=== PATIENT | female | born 1930 | race Caucasian/White ===

== ENCOUNTER 2017-12-19 18:25 | Inpatient (IN) | payer MEDICARE, OTHER ==
[~2017-12-19] VITALS: Ht 165.1 cm; Wt 56.0 kg
--- NOTE | ~2017-12-19 | OP ---
PATIENT NAME: JULIEN QUINONES MEDICAL RECORD: [id number] :32 LOCATION:D.MS [facility]2216 ADMISSION DATE:12/20/17 SURGEON: KACI SANFORD MD DATE OF OPERATION: 12/24/2017 PROCEDURE: Selective coronary angiography. INDICATION: Aortic valve replacement. PROCEDURE IN DETAIL: After informed consent was obtained and after detailed explanation of risks, benefits as well as alternative therapies, the patient elected to proceed with angiogram and heart catheterization. FINDINGS: The left ventriculogram was not performed secondary to inability to cross the stenotic aortic valve. SELECTIVE CORONARY ANGIOGRAPHY: Left main, left anterior descending, left circumflex, right coronary artery are all smooth-walled vessels with no angiographic evidence of coronary artery disease. OVERALL IMPRESSION: 1. No angiographic evidence of coronary artery disease. 2. Normal left heart pressures. 3. Normal left ventricular systolic function. 4. No coronary artery disease is present. Evaluate for valve replacement. TRANSINT:[id number] Voice Confirmation ID: [id number] DOCUMENT ID: [id number] KACI SANFORD MD at 1950 CC: [id number] DICTATION DATE: 12/24/17 1336 LEAD QA ANALYST: 12/24/17 1408 ADM IN [place] [id number] [place] [address]
--- NOTE | ~2017-12-19 | HEMODYNAMI ---
PATIENT:JULIEN QUINONES MEDICAL RECORD: [id number] : 32 LOCATION:[facility].2216 ADMISSION DATE: 12/20/17 Generatedon:12/24/201713:41 Patient name: JULIEN QUINONES Patient #: [id number] SSN: : [id number] Date of study: 12/24/2017 Page: Of Hemodynamic Procedure Report Patient Data Patient Demographics Procedure consent was obtained First Name: JULIEN Gender: Female Last Name: STACIE : 1930 [facility] Initial: YAKELIN Age: 87 year(s) Patient #: [id number] Race: Unknown Additional ID: [id number] Contact details Address: [address] [place] [address] State: [place] City: [place] Zip code: [address] Past Medical History Allergies: No known allergies Admission Admission Data Admission Date: 12/20/2017 Admission Time: 14:25 Room #: 2216 Procedure Procedure Types Cath Procedure Diagnostic Procedure LHC Coronaries only Procedure Description Procedure Date Procedure Date: 12/24/2017 Procedure Start Time: 13:28 Procedure End Time: 13:39 Procedure Staff Name Function Omar Honeycutt RN Nurse Efren Marie MD Performing Physician Juju Pizarro RT Scrub Iván Linda RN Nurse Kip Monzon RT Monitor Procedure Data Cath Procedure Fluoroscopy Diagnostic fluoroscopy Total fluoroscopy Time: 0.8 time: 0.8 min min Diagnostic fluoroscopy Total fluoroscopy dose: dose: 63.06 mGy 63.06 mGy Contrast Material Contrast Material Type Amount (ml) Isovue 300 22 Entry Location Entry Primary Successful Side Size Upsize Upsize Entry Closure Succes sful Closure Location (Fr) 1 (Fr) 2 (Fr) Remarks Device Remarks Femoral Right 5 Fr Exoseal artery Estimated blood loss: 5 ml Diagnostic catheters Device Type Used For End Catheter Placement MULTIPACK JL 4.0 5Fr Procedure catheter MULTIPACK 3DRC 5Fr Procedure catheter Procedure Complications No complications Procedure Medications Medication Administration Route Dosage 0.9% NaCl I.V. 100 ml/hr Oxygen NC 7 l/min Heparin Flush Bag added to field 2 bags (1000units/500ml NS) Lidocaine 2% added to field 20 Fentanyl I.V. 25 mcg Hemodynamics Rest Heart Rate: 61 (bpm) Snapshots Pre Cath Intra NCS Post Cath Vital Signs Time Heart Resp SPO2 etCO2 NIBP (mmHg) Rhythm Pain Sedation Rate (ipm) (%) (mmHg) Status Level (bpm) 13:14:47 59 27 94 0 144/67(121) NSR 0 (11) 10(A) , No pain 13:19:07 59 27 96 0 139/76(119) NSR 0 (11) 10(A) , No pain 13:23:23 56 23 89 0 127/67(106) NSR 0 (11) 10(A) , No pain 13:27:36 55 27 88 0 126/69(105) NSR 0 (11) 10(A) , No pain 13:31:53 57 22 89 0 125/63(102) NSR 0 (11) 9(A) , No pain 13:36:07 55 39 88 0 125/67(107) NSR 0 (11) 9(A) , No pain Medications Time Medication Route Dose Verified Delivered Reason Notes Effe ctiveness by by 13:19:42 0.9% NaCl I.V. 100 Iván Iván Per ml/hr Maddi Linda physician RN RN 13:20:00 Oxygen NC 7 Iván Iván Per l/min Maddi Linda physician RN RN 13:20:11 Heparin Flush added 2 Iván Iván used for Bag to bags Maddi Linda procedure (1000units/500ml field RN RN NS) 13:20:22 Lidocaine 2% added 20ml Iván Iván for local to vial Maddi Linda anesthetic field RN RN 13:28:36 Fentanyl I.V. 25 Iván Iván for mcg Maddi Linda sedation RN neighborhood conservation officer Log Time Note 12:46:05 Diagnostic Cath status Elective 12:46:07 Juju TREVIZO(R) sent for patient. Start room use. 12:46:09 Time tracking: Regular hours (M-F 7:00 - 5:00) 12:46:14 Plan of Care:Hemodynamics will remain stable., Cardiac rhythm will remain stable., Comfort level will be maintained., Respiratory function will remain adequate., Patient/ family verbilizes understanding of procedure., Procedure tolerated without complication., Recovers from procedure without complications.. 13:13:24 Patient received from Med/Surg to CCL 3 Alert and oriented. Tansferred to table in Supine position. 13:13:25 Correct patient and procedure confirmed by team. 13:13:25 Warm blankets applied, and elsa hugger turned on for patient comfort. 13:13:27 Signed procedure consent form obtained from patient. 13:13:33 ECG and BP/O2 sat monitors applied to patient. 13:13:34 Vital chart was started 13:13:35 Baseline sample Acquired. 13:13:55 Rhythm: sinus rhythm 13:13:58 Full Disclosure recording started 13:19:42 0.9% NaCl 100 ml/hr I.V. was administered by Iván Linda RN; Per physician; 13:20:00 Oxygen 7 l/min NC was administered by Iván Linda RN; Per physician; 13:20:11 Heparin Flush Bag (1000units/500ml NS) 2 bags added to field was administered by Iván Linda RN; used for procedure; 13:20:22 Lidocaine 2% 20ml vial added to field was administered by Iván Linda RN; for local anesthetic; 13:26:00 H&P Date Dictated: 12/21/2017 Within 30 days and on chart.. 13:26:03 Pre-op teaching completed and patient verbalized understanding. 13:26:03 Pre-procedure instructions explained to patient. 13:26:06 Family unavailable. 13:26:11 Patient NPO since Midnight. 13:26:17 Patient allergic to No known allergies 13:26:19 Is the patient allergic to Iodine/contrast media? No. 13:26:24 Is patient on blood thinner?Yes 13:26:27 Patient diabetic? No. 13:26:29 Previous problem with sedation/anesthesia? No ? 13:26:32 Snore? Yes 13:26:33 Sleep apnea? No 13:26:34 Opens mouth fully? Yes 13:26:34 Deviated septum? No 13:26:36 Sticks out tongue? Yes 13:26:37 Airway obstruction? No ? 13:26:40 Dentures? No ? 13:26:44 Pre procedure: right dorsailis pedis pulse 1+ Palpable, but thready & weak; easily obliterated 13:26:45 Patient pain scale 0/10 ?. 13:26:56 IV patent on arrival in right wrist with 0.9% NaCl at [facility]. 13::59 Lab results completed and on chart. 13:27:01 Right groin area was prepped with chlora-prep and draped in sterile fashion 13:27:02 Sharps counted by scrub and verified by R.N. 13:27:02 Alarms reviewed by R. N. 13:27:05 Use device set Femoral Dx 13:27:06 Bag Decanter (2002S) opened to sterile field. 13:27:06 ACIST Syringe (64867) opened to sterile field. 13:27:55 Medline Cath Pack ([id number]) opened to sterile field. 13:27:57 ACIST Manifold (09926) opened to sterile field. 13:27:57 ACIST Hand Control (75564) opened to sterile field. 13:27:58 Tegaderm 4 x 4 (1626W) opened to sterile field. 13:28:00 SHEATH Prelude 5Fr 0.035 (XLW-2J-11-035) opened to sterile field. 13:28:02 DIAGNOSTIC WIRE .035 260cm J wire (530803) opened to sterile field. 13:28:03 DIAGNOSTIC Multipack 5Fr catheter set (FQ2936) opened to sterile field. 13:28:17 Final Timeout: patient, procedure, and site verified with staff and physician. All members of the team are in agreement. 13::17 --------ALL STOP TIME OUT------ 13::17 Physician arrived 13:28:19 Right groin site verified by team. 13:28:22 Physical assessment completed. ASA score P 3 - A patient with severe systemic disease as per Efren Marie MD. 13:28:24 Sedation plan: IV Moderate Sedation Medication:Versed, Fentanyl 13:28:28 Procedure started. 13:28:32 Local anesthetic to right femoral artery with Lidocaine 2% by Efren Marie MD.INITIAL ACCESS ONLY 13:28:33 Zero performed for pressure channel P1 13:28:36 Fentanyl 25 mcg I.V. was administered by Iván Linda RN; for sedation; 13:28:48 Zero performed for pressure channel P1 13:28:50 Zero performed for pressure channel P1 13:28:53 Zero performed for pressure channel P1 13:28:55 Zero performed for pressure channel P1 13:28:58 Zero performed for pressure channel P1 13:29:01 Zero performed for pressure channel P1 13:29:24 A 5 Fr sheath was inserted into the Right Femoral artery 13:29:27 Zero performed for pressure channel P1 13:29:35 Zero performed for pressure channel P1 13:30:11 A MULTIPACK JL 4.0 5Fr catheter was advanced over the wire and used for Procedure. 13:30:13 LCA angiography performed. 13:31:00 Catheter exchanged over wire. 13:31:06 A MULTIPACK 3DRC 5Fr catheter was advanced over the wire and used for Procedure. 13:31:19 EXOSEAL 5Fr (EX500) opened to sterile field. 13:31:25 Catheter removed. 13:31:33 Sheath removed intact; hemostasis achieved with Exoseal to the Right Femoral artery. 13:31:34 Procedure ended.(Physican Out) 13:32:12 Fluoroscopy time 00.80 minutes. 13:34:13 Fluoroscopy dose: 63.06 mGy 13:34:13 Flurop Dose total: 63.06 13:34:18 Contrast amount:Isovue 300 22ml. 13:34:19 Sharps counted by scrub and verified by R.N. 13:34:21 Insertion/operative site no bleeding no hematoma. 13:34:24 Post-op/insertion site Right Femoral artery dressed using a 4 x 4 and Tegaderm. 13:34:27 Post right femoral artery:stable, soft, clean and dry 13:36:03 Post Procedure Pulses reassessed and unchanged 13:36:06 Post-procedure physical assessment completed. ASA score P 2 - A patient with mild systemic disease as per Efren Marie MD. 13:36:08 Post procedure rhythm: unchanged. 13:36:10 Estimated blood loss: 5 ml 13:36:12 Patient needs reinforcement of post procedure teaching. 13:36:12 Post procedure instruction explained to patient.Patient verbalizes understanding. 13:36:20 Procedure type changed to Cath procedure, Diagnostic procedure, LHC, Coronaries only 13:37:08 Procedure and supply charges have been captured, reviewed, submitted and are correct. 13:37:10 Procedure Complication : No complications 13:37:12 See physician's report for complete and final results. 13:37:12 Vital chart was stopped 13:39:07 Report given to Pre/Post Procedure Room. 13:39:10 Patient transfered to Pre/Post Procedure Room with Stretcher. 13:39:12 Full Disclosure recording stopped 13:39:12 Procedure ended. 13:39:16 End room use (Document Last) Device Usage Item Name Manufacture Quantity Catalog Number Hospital Part Current M inimal Lot# / Charge Number Stock Stock Serial# Code ACIST Syringe Acist 1 80847 380001 623545 139024 2 0 (55199) [employer] Bag Decanter Microtek 1 2001S 082400 96145 637479 5 (2001S) Medical Inc. Medline Cath Cardinal 1 [id number] 029621 36195 203424 5 Pack Health ([id number]) ACIST Hand Acist 1 08864 105409 326003 010135 5 Control (91960) [employer] ACIST Manifold Acist 1 19661 111933 731671 020992 5 (37406) [employer] Tegaderm 4 x 4 3M 1 1626W 258178 769413 740991 5 (1626W) SHEATH Prelude Merit 1 XTY-2I-00-035 838338 899312 264789 5 5Fr 0.035 Medical (XKW-2X-73-035) DIAGNOSTIC WIRE [facility] 1 188322 411884 935862 491839 3 0 .035 260cm J wire (632521) DIAGNOSTIC Cardinal 1 [id number] 340483 61290 743695 3 0 Multipack 5Fr Health catheter set ([id number]) MULTIPACK JL Cardinal 1 666194 5 4.0 5Fr Health catheter MULTIPACK 3DRC Cardinal 1 019297 5 5Fr catheter Health EXOSEAL 5Fr Cardinal 1 EX500 481871 205560 912111 1 0 (EX500) Health Signature Audit [place] Stage Time Signature Unsigned Intra-Procedure 12/24/2017 Kip Monzon 1:41:46 PM RT(R) Signatures Monitor : Kip Monzon RT Signature : Date : Time : [facility] [address] [facility] [place] [address]
--- NOTE | ~2017-12-19 | EC ---
PATIENT:JULIEN QUINONES DATE OF SERVICE: 12/20/17 SEX: F MEDICAL RECORD: [id number] DATE OF : [birth year] LOCATION:D.MS [facility] AGE OF PATIENT: 87 ADMISSION DATE: 12/20/17 REFERRING PHYSICIAN: INTERPRETING PHYSICIAN: KACI MARIE MD ECHOCARDIOGRAM REPORT ECHO CHARGES 4 ECHO COMPLETE Date: 12/20/17 CLINICAL DIAGNOSIS: ECHOCARDIOGRAPHIC MEASUREMENTS (adult normal given) AC root (d.<3.7cm) 3.0 cm LV Septum d (<1.2 cm> 1.4 cm Valve Excursion 0.5 cm LV Septum (systole) 1.7 cm Left Atria (s.<4.0cm> 4.9 cm LVPW d(<1.2cm) 1.4 cm RV (d.<2.3cm) 1.8 cm LVPW (sytole) 1.9 cm LV diastole(<5.6CM) 5.2 cm MV E-F(>70mm/sec) cm LV systole 3.7 cm LVOT Diameter 1.6 cm MV exc.(>10mm) cm Est.ejection fraction (50-75%) % DOPPLER: LVIT cm/sec A 112 cm/sec E 189 cm/sec LA cm/sec RVSP 74.0 mmHg LVOT 89.0 cm/sec AOP1/2T m/s Asc. Ao 590 cm/sec RVOT 108 cm/sec RA cm/sec PA 374 cm/sec AV Gradient Peak 140.0mmHg AV Mean 93.2 mmHg AV Area 0.2 cm MV Gradient Peak 16.0 mmHg MV Mean 5.1 mmHg MV Area cm COMMENTS: Transfer Specialist: 1 TAYLOR CORONADSOE Electric Motor Analyst: 1 Dr. Marie TAPE# PACS Pericardial Effusion Y DATE OF SERVICE: 12/20/2017 PROCEDURE: Echocardiogram. FINDINGS: 1. Left ventricular chamber size is mildly dilated. Left ventricular systolic function is moderately reduced, overall ejection fraction 30%. 2. Left atrium is enlarged at 4.9 cm. Right atrium and right ventricle chamber sizes are as well moderately dilated. 3. Valvular structures: Aortic valve demonstrates severe calcific aortic ECHOCARDIOGRAM REPORT [id number] JULIEN QUINONES stenosis, valve area calculates to 0.2 cm-squared. There is a gradient of 140 mm across the valve. The remaining valvular structures have normal structure and motion. 4. Doppler interrogation reveals moderate mitral regurgitation, moderate tricuspid regurgitation, no other valvular insufficiency or stenosis. Pulmonary systolic pressure is markedly elevated estimated at 74 mmHg. 5. Trace pericardial effusion is present. This is not hemodynamically significant. No evidence of left ventricular thrombus. TRANSINT:[id number] Voice Confirmation ID: [id number] DOCUMENT ID: [id number] KACI MARIE MD at 1950 CC: [id number] DICTATION DATE: 12/21/17 1120 CLINICAL CYTOGENETICIST SCIENTIST: 12/21/17 1135 ADM IN [place] [id number] [place] [id number]
--- NOTE | ~2017-12-19 | CN ---
PATIENT NAME:JULIEN QUINONES MEDICAL RECORD: [id number] : 32 LOCATION:D.MS Davis2216 ADMIT DATE: 12/20/17 ACCOUNT: [id number] CONSULTING PHYSICIAN: KACI SANFORD MD REFERRING PHYSICIAN: JORI BAEZ MD DATE OF CONSULTATION: 12/21/2017 CARDIOLOGY CONSULTATION DIAGNOSES: 1. Syncope. 2. Paroxysmal atrial fibrillation. 3. History of atrial fibrillation. 4. Coumadin anticoagulation. 5. Aortic stenosis. HISTORY OF PRESENT ILLNESS: Mrs. Quinones has been having episodes of syncope. She is found to have episodes of paroxysmal atrial fibrillation. She has a history of paroxysmal atrial fibrillation, for which she is on Coumadin as well as amiodarone 100 mg b.i.d. She has hypertension, which she is also on amlodipine. She is now with atrial fibrillation at 130 beats per minute. PHYSICAL EXAMINATION: GENERAL APPEARANCE: Well-nourished, well-developed, appears stated age. Level of distress, comfortable. PSYCHIATRIC: Mental status, alert, normal affect. Orientation, oriented to time, place and person. EYES: Lids and conjunctiva, noninjected. No discharge, no pallor. ENT: Lips, teeth, gums, normal dentition. Oropharynx, no cyanosis, no pallor. NECK: Carotid arteries, bilateral normal upstroke, no bruits, no thrills. JUGULAR VEINS: No jugular venous pressure or distention. CERVICAL LYMPH NODES: Nontender, nonenlarged. THYROID: Not enlarged. Nontender. No nodules. LUNGS: Respiratory effort, unlabored. CHEST: Normal curvature. No thoracic deformity. No chest wall tenderness. Percussion, resonant. Auscultation, clear. No wheezes, no rales, no rhonchi. CARDIOVASCULAR: Irregularly irregular, tachycardic with atrial fibrillation. EXTREMITIES: No cyanosis, no edema. Peripheral pulses, full and equal in all extremities, except as noted. No bruits appreciated. ABDOMEN: Soft, nondistended. Normal aorta. No bruit. Nontender. No masses. Liver, nontender, no hepatomegaly. Spleen, nontender, no splenomegaly. MUSCULOSKELETAL: No joint tenderness. No joint swelling. No erythema. NEUROLOGICAL: Normal gait, normal strength, normal tone. SKIN: Warm and dry. OVERALL IMPRESSION: Paroxysmal atrial fibrillation. At this time, clearly the amiodarone is not working. We will discontinue the amiodarone, start her on sotalol 80 mg b.i.d., increasing the sotalol as needed. If she fails to convert, we will consider DC cardioversion. TRANSINT:[id number] Voice Confirmation ID: [id number] DOCUMENT ID: [id number] CONSULT REPORT [id number] JULIEN QUINONES, KACI CESAR at 1948 CC: [id number] DICTATION DATE: 12/21/17 1101 ADMINISTRATION INTERNSHIP: 12/21/17 1117 ADM IN [place] [id number] [place] [id number]
[2017-12-19] MEDS ORDERED: COUMADIN6 MG PO (18:32)
[2017-12-19] MEDS ORDERED: COUMADIN3 MG PO (18:32)
[2017-12-19 19:13] LABS: BASOPHILS 0.2 % (0-2); EOSINOPHILS 1.2 % (0-7); HEMATOCRIT 27.6 % (36.0-48.0); IMMATURE GRANULOCYTES 0.2 % (0-5); LYMPHOCYTES 29.4 % (15-50); MCH 30.7 pg (26.0-34.0); MCHC 32.6 g/dL (31.0-37.0); MCV 94.2 fL (80.0-100.0); MEAN PLATELET VOLUME 9.8 fL (7.4-10.4); MONOCYTES 9.6 % (2-11); NEUTROPHILS 59.4 % (40-80); PLATELET COUNT 200 10x3/uL (130-400); RBC 2.93 10x6/uL (4.00-5.40); RDW 13.8 % (11.5-14.5); WBC 5.9 10x3/uL (4.8-10.8)
[2017-12-19 19:23] LABS: APTT 32.5 SECONDS (22.8-39.4); INR 2.66 (0.85-1.17); PROTIME 27.7 SECONDS (11.6-15.0)
[2017-12-19 19:37] VITALS: BP 130/52
[2017-12-19 19:41] LABS: ALBUMIN 3.5 g/dL (3.4-5.0); ANION GAP 12.5 mmol/L (8-16); BILIRUBIN - TOTAL 0.27 mg/dL (0.2-1.3); CALCIUM 8.1 mg/dL (8.5-10.1); CARBON DIOXIDE 26.5 mmol/L (21.0-32.0); CREATININE - SERUM 1.5 mg/dL (0.6-1.3); PROTEIN - SERUM 6.7 g/dL (6.4-8.2); TROPONIN-I 0.02 ng/mL (0.000-0.060)
[2017-12-19 20:34] VITALS: BP 118/57
[2017-12-19] MEDS ORDERED: PACERONE200 MG PO (23:33)
[2017-12-19] MEDS ORDERED: ATIVAN1 MG PO (23:38)
[2017-12-19] MEDS ORDERED: NORVASC5 MG PO (23:39)
[2017-12-19] MEDS ORDERED: KEFLEX500 MG PO (23:41)
[2017-12-19] MEDS ORDERED: MULTIPLE VITAMI1 TA1 PO (23:42)
[2017-12-20] MEDS ORDERED: COLACE100 MG PO (00:18)
[2017-12-20 00:42] VITALS: BP 146/74
[2017-12-20 03:42] VITALS: BMI 20.5
[2017-12-20 06:33] LABS: BASOPHILS 0.1 % (0-2); EOSINOPHILS 0 % (0-7); HEMATOCRIT 30.9 % (36.0-48.0); IMMATURE GRANULOCYTES 0.2 % (0-5); LYMPHOCYTES 9.9 % (15-50); MCH 30.7 pg (26.0-34.0); MCHC 32.4 g/dL (31.0-37.0); MCV 94.8 fL (80.0-100.0); MEAN PLATELET VOLUME 9.6 fL (7.4-10.4); MONOCYTES 7.3 % (2-11); NEUTROPHILS 82.5 % (40-80); PLATELET COUNT 223 10x3/uL (130-400); RBC 3.26 10x6/uL (4.00-5.40); RDW 13.8 % (11.5-14.5)
[2017-12-20 06:35] LABS: WBC 11.6 10x3/uL (4.8-10.8)
[2017-12-20 06:43] LABS: INR 2.39 (0.85-1.17); PROTIME 25.4 SECONDS (11.6-15.0)
[2017-12-20 06:47] LABS: ANION GAP 12.1 mmol/L (8-16); CALCIUM 8.2 mg/dL (8.5-10.1); CREATININE - SERUM 1.4 mg/dL (0.6-1.3); POTASSIUM - SERUM 4.1 mmol/L (3.5-5.1)
[2017-12-20 11:05] VITALS: BP 107/46
[2017-12-20 14:46] VITALS: BP 100/51
[2017-12-20 16:10] LABS: % SATURATION 16 % (15-55); IRON 62 ug/dl (35-150); TOTAL IRON BIND CAPACITY 367 ug/dl (260-445); UNSAT IRON BIND CAPACITY 305 ug/dl (150-375)
[2017-12-20 16:16] LABS: CKMB 2.9 U/L (0.0-3.6); CREATINE KINASE 132 UL (21-215); TROPONIN-I 0.057 ng/mL (0.000-0.060)
[2017-12-20 16:19] LABS: T4 THYROXIN - FREE 1.57 ng/dL (0.76-1.46); THYROID STIMULATING HORMONE 0.61 uIU/mL (0.36-3.74)
[2017-12-20 20:00] VITALS: BP 100/46
[2017-12-20 21:49] LABS: CKMB 2.7 U/L (0.0-3.6); CREATINE KINASE 133 UL (21-215); TROPONIN-I 0.054 ng/mL (0.000-0.060)
[2017-12-21 03:16] LABS: BASOPHILS 0 % (0-2); EOSINOPHILS 0.1 % (0-7); HEMATOCRIT 27.7 % (36.0-48.0); HEMOGLOBIN 9.1 g/dL (12-16); IMMATURE GRANULOCYTES 0.1 % (0-5); LYMPHOCYTES 15.7 % (15-50); MCH 30.7 pg (26.0-34.0); MCHC 32.9 g/dL (31.0-37.0); MCV 93.6 fL (80.0-100.0); MONOCYTES 13.7 % (2-11); NEUTROPHILS 70.4 % (40-80); PLATELET COUNT 202 10x3/uL (130-400); RBC 2.96 10x6/uL (4.00-5.40); RDW 13.9 % (11.5-14.5)
[2017-12-21 03:42] LABS: CALC OSMOLALITY 277 mosm/kg (275-300); CALCIUM 8.1 mg/dL (8.5-10.1); CARBON DIOXIDE 31.9 mmol/L (21.0-32.0); CHLORIDE - SERUM 103 mmol/L (98-107); CKMB 2.6 U/L (0.0-3.6); CREATINE KINASE 127 UL (21-215); CREATININE - SERUM 1.2 mg/dL (0.6-1.3); GLUCOSE 116 mg/dL (74-106); POTASSIUM - SERUM 3.8 mmol/L (3.5-5.1); SODIUM 137 mmol/L (136-145); TROPONIN-I 0.059 ng/mL (0.000-0.060); UREA NITROGEN 21 mg/dL (7-18); eGFR NON AFRICAN AMERICAN 45 mL/min (90-120)
[2017-12-21 04:00] VITALS: BP 170/50
[2017-12-21 10:22] VITALS: BP 110/63
[2017-12-21 16:42] VITALS: BP 92/49
[2017-12-21 20:33] VITALS: BP 114/53
[2017-12-22 03:53] VITALS: BP 108/40
[2017-12-22 03:55] LABS: BASOPHILS 0.1 % (0-2); EOSINOPHILS 0.1 % (0-7); HEMATOCRIT 28.1 % (36.0-48.0); HEMOGLOBIN 9.2 g/dL (12-16); IMMATURE GRANULOCYTES 0.2 % (0-5); LYMPHOCYTES 9.6 % (15-50); MCH 30.6 pg (26.0-34.0); MCHC 32.7 g/dL (31.0-37.0); MCV 93.4 fL (80.0-100.0); MONOCYTES 11.8 % (2-11); NEUTROPHILS 78.2 % (40-80); PLATELET COUNT 211 10x3/uL (130-400); RBC 3.01 10x6/uL (4.00-5.40); WBC 8.8 10x3/uL (4.8-10.8)
[2017-12-22 04:05] LABS: ANION GAP 10.1 mmol/L (8-16); CALCIUM 8.1 mg/dL (8.5-10.1); CARBON DIOXIDE 28.9 mmol/L (21.0-32.0); CREATININE - SERUM 1.1 mg/dL (0.6-1.3)
[2017-12-22 08:27] VITALS: BP 120/53
[2017-12-22 13:32] VITALS: BP 103/44
[2017-12-22 18:34] VITALS: BP 112/41
[2017-12-22 20:00] VITALS: BP 106/56
[2017-12-23 04:39] LABS: BASOPHILS 0.2 % (0-2); EOSINOPHILS 0.6 % (0-7); HEMOGLOBIN 8.1 g/dL (12-16); IMMATURE GRANULOCYTES 0.3 % (0-5); LYMPHOCYTES 6.7 % (15-50); MCH 30.6 pg (26.0-34.0); MCHC 32.4 g/dL (31.0-37.0); MCV 94.3 fL (80.0-100.0); MEAN PLATELET VOLUME 10.5 fL (7.4-10.4); MONOCYTES 12.4 % (2-11); NEUTROPHILS 79.8 % (40-80); RBC 2.65 10x6/uL (4.00-5.40); RDW 13.9 % (11.5-14.5)
[2017-12-23 04:42] VITALS: BP 122/45
[2017-12-23 04:43] LABS: PLATELET COUNT 298 10x3/uL (130-400); WBC 11.9 10x3/uL (4.8-10.8)
[2017-12-23 04:47] LABS: ANION GAP 10.9 mmol/L (8-16); CALCIUM 8.3 mg/dL (8.5-10.1); CARBON DIOXIDE 28.6 mmol/L (21.0-32.0); INR 3.24 (0.85-1.17); POTASSIUM - SERUM 4.5 mmol/L (3.5-5.1); PROTIME 32.3 SECONDS (11.6-15.0)
[2017-12-23 09:18] VITALS: BP 125/51
[2017-12-23 12:28] VITALS: BP 109/43
[2017-12-23 13:08] VITALS: Ht 165.1 cm; Wt 56.0 kg
[2017-12-23 16:14] VITALS: BP 106/47
[2017-12-23 20:35] VITALS: BP 134/48
[2017-12-24 04:01] VITALS: BP 109/68
[2017-12-24 08:20] LABS: BASOPHILS 0.1 % (0-2); EOSINOPHILS 0.1 % (0-7); HEMATOCRIT 27.8 % (36.0-48.0); HEMOGLOBIN 8.9 g/dL (12-16); IMMATURE GRANULOCYTES 0.3 % (0-5); LYMPHOCYTES 9.3 % (15-50); MCH 30.3 pg (26.0-34.0); MCV 94.6 fL (80.0-100.0); MEAN PLATELET VOLUME 9.8 fL (7.4-10.4); MONOCYTES 10.5 % (2-11); NEUTROPHILS 79.7 % (40-80); PLATELET COUNT 241 10x3/uL (130-400); RBC 2.94 10x6/uL (4.00-5.40); RDW 13.8 % (11.5-14.5); WBC 9.4 10x3/uL (4.8-10.8)
[2017-12-24 08:28] VITALS: BP 98/43
[2017-12-24 08:41] LABS: INR 1.72 (0.85-1.17); PROTIME 19.6 SECONDS (11.6-15.0)
[2017-12-24 08:57] LABS: ANION GAP 8.4 mmol/L (8-16); CALCIUM 8.1 mg/dL (8.5-10.1); CARBON DIOXIDE 31.7 mmol/L (21.0-32.0); POTASSIUM - SERUM 4.1 mmol/L (3.5-5.1)
[2017-12-24 11:10] VITALS: BP 94/44
[2017-12-24 13:16] LABS: FOLATE (FOLIC ACID) - SERUM >20.0 ng/mL (>3.0)
[2017-12-24 22:11] VITALS: BP 124/52
[2017-12-25 04:12] VITALS: BP 116/59
[2017-12-25 05:57] LABS: BASOPHILS 0.1 % (0-2); EOSINOPHILS 0.3 % (0-7); HEMATOCRIT 28.6 % (36.0-48.0); IMMATURE GRANULOCYTES 0.3 % (0-5); MCH 30.3 pg (26.0-34.0); MCHC 31.5 g/dL (31.0-37.0); MCV 96.3 fL (80.0-100.0); MEAN PLATELET VOLUME 10.1 fL (7.4-10.4); MONOCYTES 14.3 % (2-11); PLATELET COUNT 262 10x3/uL (130-400); RBC 2.97 10x6/uL (4.00-5.40); RDW 14.2 % (11.5-14.5); WBC 9.5 10x3/uL (4.8-10.8)
[2017-12-25 06:27] LABS: ANION GAP 13.8 mmol/L (8-16); CALCIUM 8.1 mg/dL (8.5-10.1); CARBON DIOXIDE 28.6 mmol/L (21.0-32.0); POTASSIUM - SERUM 4.4 mmol/L (3.5-5.1)
[2017-12-25 09:23] VITALS: BP 129/47
[2017-12-25 12:25] VITALS: BP 132/57
[2017-12-25 17:02] VITALS: BP 105/67
[2017-12-25 21:08] VITALS: BP 107/54
[2017-12-26 04:45] VITALS: BP 140/70
[2017-12-26 06:04] LABS: HEMATOCRIT 29.3 % (36.0-48.0); HEMOGLOBIN 9.5 g/dL (12-16); LYMPHOCYTES 10.7 % (15-50); MCH 31.1 pg (26.0-34.0); MCHC 32.4 g/dL (31.0-37.0); MCV 96.1 fL (80.0-100.0); MEAN PLATELET VOLUME 9.5 fL (7.4-10.4); NEUTROPHILS 79.1 % (40-80); PLATELET COUNT 237 10x3/uL (130-400); RBC 3.05 10x6/uL (4.00-5.40); RDW 15.9 % (11.5-14.5); WBC 8.6 10x3/uL (4.8-10.8)
[2017-12-26 06:19] LABS: ALBUMIN 2.9 g/dL (3.4-5.0); ANION GAP 13.1 mmol/L (8-16); BILIRUBIN - TOTAL 0.62 mg/dL (0.2-1.3); CALCIUM 8.6 mg/dL (8.5-10.1); CARBON DIOXIDE 27.2 mmol/L (21.0-32.0); POTASSIUM - SERUM 4.3 mmol/L (3.5-5.1); PROTEIN - SERUM 6.4 g/dL (6.4-8.2)
[2017-12-26 08:52] VITALS: BP 138/56
[2017-12-26 20:00] VITALS: BP 92/50
[2017-12-27 04:00] VITALS: BP 126/78; BP 135/63
[2017-12-27 06:17] LABS: BASOPHILS 0.2 % (0-2); EOSINOPHILS 0.7 % (0-7); HEMATOCRIT 31.5 % (36.0-48.0); LYMPHOCYTES 12.8 % (15-50); MCH 31.2 pg (26.0-34.0); MCHC 31.7 g/dL (31.0-37.0); MEAN PLATELET VOLUME 9.8 fL (7.4-10.4); MONOCYTES 13.6 % (2-11); NEUTROPHILS 71.7 % (40-80); PLATELET COUNT 269 10x3/uL (130-400); RBC 3.21 10x6/uL (4.00-5.40)
[2017-12-27 06:20] LABS: MCV 98.1 fL (80.0-100.0); WBC 11.4 10x3/uL (4.8-10.8)
[2017-12-27 06:30] LABS: ALBUMIN 2.8 g/dL (3.4-5.0); ANION GAP 7.9 mmol/L (8-16); BILIRUBIN - TOTAL 0.36 mg/dL (0.2-1.3); CALCIUM 8.3 mg/dL (8.5-10.1); CARBON DIOXIDE 30.8 mmol/L (21.0-32.0); POTASSIUM - SERUM 4.7 mmol/L (3.5-5.1); PROTEIN - SERUM 6.6 g/dL (6.4-8.2)
[2017-12-27 06:40] LABS: INR 1.24 (0.85-1.17); PROTIME 15.1 SECONDS (11.6-15.0)
[2017-12-27 08:44] VITALS: BP 123/60
[2017-12-27 09:30] VITALS: BP 106/61
[2017-12-27 15:57] VITALS: BP 104/60
[2017-12-27 20:00] VITALS: BP 102/48
[2017-12-27 23:43] VITALS: BP 140/83
[2017-12-28 04:00] VITALS: BP 128/62
[2017-12-28 06:09] LABS: BASOPHILS 0.2 % (0-2); EOSINOPHILS 0.2 % (0-7); HEMATOCRIT 29.4 % (36.0-48.0); HEMOGLOBIN 9.3 g/dL (12-16); MCH 31.2 pg (26.0-34.0); MCHC 31.6 g/dL (31.0-37.0); MCV 98.7 fL (80.0-100.0); MEAN PLATELET VOLUME 9.5 fL (7.4-10.4); MONOCYTES 10.6 % (2-11); PLATELET COUNT 255 10x3/uL (130-400); RBC 2.98 10x6/uL (4.00-5.40); WBC 10.7 10x3/uL (4.8-10.8)
[2017-12-28 06:21] LABS: INR 1.28 (0.85-1.17); PROTIME 15.5 SECONDS (11.6-15.0)
[2017-12-28 06:32] LABS: ALBUMIN 2.5 g/dL (3.4-5.0); ANION GAP 7.9 mmol/L (8-16); BILIRUBIN - TOTAL 0.43 mg/dL (0.2-1.3); CARBON DIOXIDE 30.4 mmol/L (21.0-32.0); POTASSIUM - SERUM 4.3 mmol/L (3.5-5.1)
[2017-12-28 10:10] VITALS: BP 133/87
[2017-12-28 15:04] VITALS: BP 123/61
[2017-12-28 20:23] VITALS: BP 115/58
[2017-12-29 04:34] VITALS: BP 138/67
[2017-12-29 05:19] LABS: BASOPHILS 0.2 % (0-2); EOSINOPHILS 1.3 % (0-7); HEMATOCRIT 33.8 % (36.0-48.0); HEMOGLOBIN 10.6 g/dL (12-16); IMMATURE GRANULOCYTES 1.3 % (0-5); INR 1.19 (0.85-1.17); LYMPHOCYTES 18.4 % (15-50); MCH 31.5 pg (26.0-34.0); MCHC 31.4 g/dL (31.0-37.0); MCV 100.6 fL (80.0-100.0); MEAN PLATELET VOLUME 9.6 fL (7.4-10.4); MONOCYTES 10.3 % (2-11); NEUTROPHILS 68.5 % (40-80); PLATELET COUNT 293 10x3/uL (130-400); PROTIME 14.7 SECONDS (11.6-15.0); RBC 3.36 10x6/uL (4.00-5.40); RDW 18.3 % (11.5-14.5); WBC 9.8 10x3/uL (4.8-10.8)
[2017-12-29 05:25] LABS: ALBUMIN 2.7 g/dL (3.4-5.0); ANION GAP 9.1 mmol/L (8-16); BILIRUBIN - TOTAL 0.39 mg/dL (0.2-1.3); CARBON DIOXIDE 31.5 mmol/L (21.0-32.0); CREATININE - SERUM 0.9 mg/dL (0.6-1.3); POTASSIUM - SERUM 4.6 mmol/L (3.5-5.1); PROTEIN - SERUM 6.1 g/dL (6.4-8.2)
[2017-12-29 08:07] VITALS: BP 146/72
[2017-12-29 12:32] VITALS: BP 124/71
[2017-12-29 16:31] VITALS: BP 112/58
[2017-12-29 23:31] VITALS: BP 139/74
[2017-12-30 05:02] VITALS: BP 132/55
[2017-12-30 05:37] LABS: BASOPHILS 0.1 % (0-2); EOSINOPHILS 1.7 % (0-7); HEMATOCRIT 32.8 % (36.0-48.0); HEMOGLOBIN 10.6 g/dL (12-16); IMMATURE GRANULOCYTES 1.2 % (0-5); LYMPHOCYTES 16.7 % (15-50); MCH 32.7 pg (26.0-34.0); MCHC 32.3 g/dL (31.0-37.0); MCV 101.2 fL (80.0-100.0); MEAN PLATELET VOLUME 10.1 fL (7.4-10.4); MONOCYTES 11.7 % (2-11); NEUTROPHILS 68.6 % (40-80); PLATELET COUNT 275 10x3/uL (130-400); RBC 3.24 10x6/uL (4.00-5.40); RDW 19.4 % (11.5-14.5)
[2017-12-30 05:48] LABS: INR 1.27 (0.85-1.17); PROTIME 15.4 SECONDS (11.6-15.0)
[2017-12-30 05:58] LABS: ALBUMIN 2.6 g/dL (3.4-5.0); ANION GAP 10.5 mmol/L (8-16); BILIRUBIN - TOTAL 0.36 mg/dL (0.2-1.3); CALCIUM 7.9 mg/dL (8.5-10.1); CARBON DIOXIDE 30.9 mmol/L (21.0-32.0); POTASSIUM - SERUM 4.4 mmol/L (3.5-5.1); PROTEIN - SERUM 6.2 g/dL (6.4-8.2)
[2017-12-30 08:23] VITALS: BP 133/74
[2017-12-30 11:28] VITALS: BP 112/61
[2017-12-30] MEDS ORDERED: BETAPACE 80 MG80 MG PO (12:02)
[2017-12-30 15:54] VITALS: BP 130/63
[2017-12-30 21:31] VITALS: BP 112/64
[2017-12-31 05:13] VITALS: BP 124/74
[2017-12-31 05:55] LABS: INR 1.31 (0.85-1.17); PROTIME 15.8 SECONDS (11.6-15.0)
== END 2017-12-31 07:05 | disposition short-term general hospital (02) | DRG 286 ==
LOC: D.ER 18:25 → D.EDHOLD 21:11 → OBSVTIME 21:11 → D.MS 21:11 → D.EDHOLD 21:11 → D.MS 21:15 → D.SDCHOLD 12-22 15:16 → D.MS 12-22 15:21
PROVIDERS: Family Medicine; Internal Medicine Interventional Cardiology; Internal Medicine Nephrology
PROC: B2111ZZ Fluoroscopy of Multiple Coronary Arteries using Low Osmolar Contrast (ICD-10-PCS; principal; 2017-12-24)
PROC: 4A023N7 Measurement of Cardiac Sampling and Pressure, Left Heart, Percutaneous Approach (ICD-10-PCS; 2017-12-24)
DX: I48.0 Paroxysmal atrial fibrillation (principal); J96.01 Acute respiratory failure with hypoxia; J18.9 Pneumonia, unspecified organism; I50.43 Acute on chronic combined systolic (congestive) and diastolic (congestive) heart failure; N17.9 Acute kidney failure, unspecified; I08.3 Combined rheumatic disorders of mitral, aortic and tricuspid valves; I11.0 Hypertensive heart disease with heart failure; Z79.01 Long term (current) use of anticoagulants

== ENCOUNTER 2018-01-16 00:51 | Observation (INO) | payer MEDICARE, OTHER ==
[2018-01-16] VITALS (9 sets, daily range): BP systolic 114–139; BP diastolic 57–70; Ht 165.1 cm; Wt 54.5 kg
[~2018-01-16] VITALS: Ht 165.1 cm; Wt 54.5 kg
[~2018-01-16 00:51] MED LIST: ATIVAN1 MG PO; BETAPACE 80 MG80 MG PO; COLACE100 MG PO; COUMADIN3 MG PO; COUMADIN6 MG PO; KEFLEX500 MG PO; MULTIPLE VITAMI1 TA1 PO; NORVASC5 MG PO; PACERONE200 MG PO
[2018-01-16] MEDS ORDERED: ELIQUIS2.5 MG PO (01:03)
[2018-01-16] MEDS ORDERED: LOPRESSOR25 MG PO (01:04)
[2018-01-16] MEDS ORDERED: TOPROL XL25 MG PO (01:04)
[2018-01-16 01:42] LABS: BASOPHILS 0.4 % (0-2); EOSINOPHILS 3.3 % (0-7); HEMOGLOBIN 8.9 g/dL (12-16); IMMATURE GRANULOCYTES 0.2 % (0-5); LYMPHOCYTES 38.2 % (15-50); MCH 31.8 pg (26.0-34.0); MCHC 31.8 g/dL (31.0-37.0); MEAN PLATELET VOLUME 8.9 fL (7.4-10.4); MONOCYTES 11.7 % (2-11); NEUTROPHILS 46.2 % (40-80); PLATELET COUNT 287 10x3/uL (130-400); RDW 19.6 % (11.5-14.5); WBC 5.2 10x3/uL (4.8-10.8)
[2018-01-16 01:54] LABS: ALBUMIN 2.4 g/dL (3.4-5.0); ANION GAP 8.5 mmol/L (8-16); BILIRUBIN - TOTAL 0.2 mg/dL (0.2-1.3); CALCIUM 8.5 mg/dL (8.5-10.1); CARBON DIOXIDE 29.5 mmol/L (21.0-32.0); CREATININE - SERUM 0.8 mg/dL (0.6-1.3); PROTEIN - SERUM 6.8 g/dL (6.4-8.2)
[2018-01-16 01:56] LABS: MAGNESIUM - SERUM 2.1 mg/dL (1.8-2.4); TROPONIN-I 0.032 ng/mL (0.000-0.060)
[2018-01-16 04:06] LABS: T4 THYROXINE 8.4 ug/dL (4.7-13.3); THYROID STIMULATING HORMONE 0.34 uIU/mL (0.36-3.74)
[2018-01-17 05:48] VITALS: BP 133/63
[2018-01-17 06:43] LABS: BASOPHILS 0.2 % (0-2); EOSINOPHILS 2.9 % (0-7); HEMATOCRIT 28.2 % (36.0-48.0); HEMOGLOBIN 8.8 g/dL (12-16); IMMATURE GRANULOCYTES 0.2 % (0-5); LYMPHOCYTES 34.1 % (15-50); MCH 31.8 pg (26.0-34.0); MCHC 31.2 g/dL (31.0-37.0); MCV 101.8 fL (80.0-100.0); MEAN PLATELET VOLUME 9.3 fL (7.4-10.4); MONOCYTES 10.6 % (2-11); PLATELET COUNT 325 10x3/uL (130-400); RBC 2.77 10x6/uL (4.00-5.40); RDW 19.8 % (11.5-14.5); WBC 4.5 10x3/uL (4.8-10.8)
[2018-01-17 07:23] LABS: ANION GAP 8.5 mmol/L (8-16); CALCIUM 8.3 mg/dL (8.5-10.1); CARBON DIOXIDE 29.5 mmol/L (21.0-32.0); CREATININE - SERUM 0.9 mg/dL (0.6-1.3)
[2018-01-17] MEDS ORDERED: PACERONE200 MG PO (10:27)
[2018-01-17] MEDS ORDERED: PROTONIX40 MG PO (10:27)
[2018-01-17] MEDS ORDERED: LOPRESSOR25 MG PO (10:27)
[2018-01-17 11:37] VITALS: BP 103/47
== END 2018-01-17 13:53 | disposition home or self-care (01) ==
LOC: D.ER 00:51 → OBSVTIME 04:31 → D.M2 04:31
PROVIDERS: Emergency Medicine; Internal Medicine Nephrology
DX: I48.91 Unspecified atrial fibrillation (principal); I11.0 Hypertensive heart disease with heart failure; I50.43 Acute on chronic combined systolic (congestive) and diastolic (congestive) heart failure; D64.9 Anemia, unspecified; N17.9 Acute kidney failure, unspecified; I08.3 Combined rheumatic disorders of mitral, aortic and tricuspid valves; I42.9 Cardiomyopathy, unspecified